=== PATIENT | male | born 1940 | race Caucasian/White ===

== ENCOUNTER → 2016-10-09 | Outpatient (CLI) | payer OTHER ==
--- NOTE | 2016-10-09 15:20 | MRI ---
STUDY: MRI OF THE BRAIN WITHOUT GADOLINIUM HISTORY: Stroke with cerebral ischemia. Dizziness, weakness, and confusion. Technique: Multiplanar multi-sequence MRI of the brain was obtained utilizing standard departmental protocol. Sagittal and axial T1, axial T2, FLAIR, diffusion (DWI/ADC) images through the brain were performed. Comparison: None. Findings: The sulci, cisterns and ventricles are prominent consistent with diffuse volume loss. There are conf luent and scattered foci of T2 prolongation in the periventricular and subcortical white matter of b oth hemispheres. This is a nonspecific finding which likely represents microangiopathic change in a patient of this age. There is no evidence of acute territorial infarction, hemorrhage, mass, mass effect, or midline shif t. There are no abnormal intra-axial or extra-axial fluid collections. The major intracranial vascular flow voids appear intact. The left vertebral artery appears dominant . There is bilateral aphakia. IMPRESSION: 1. No evidence of acute intracranial abnormality. 2. Nonspecific white matter change and volume loss. Reported By:
--- NOTE | 2016-10-09 15:53 | MRI ---
STUDY: MRA OF THE BRAIN HISTORY: Stroke with cerebral ischemia. Dizziness, weakness, and confusion. Comparison: Brain MRI from October 09, 2016. Technique: 3D [id number] imaging of the intracranial circulation was performed. Findings: 3D [id number] MRA examination shows normal flow related enhancement in the major intracranial ar teries. There is no evidence of hemodynamically significant stenosis or aneurysm. The right A1 LEANDRO i s absent. The anterior communicating artery provides dominant supply to the right A2 LEANDRO. There are normal left A1 and A2 LEANDRO segments. There is a right posterior communicating artery which provides t he dominant supply to the right [employer] a right P1 segment is identified. The left vertebral artery is d ominant. The right vertebral artery is intact. IMPRESSION: 1. Normal MRA of the brain, with anatomic variation as described above. Reported By:
== END ==
LOC: RAD 13:11
PROVIDERS: ATTEND Psychiatry & Neurology Neurology
DX: I63.8 Other cerebral infarction (principal)
CPT/HCPCS: 70544; 70551